=== PATIENT | female | born 1985 | race Caucasian/White ===

== ENCOUNTER 2025-08-22 08:17 | Emergency (ER) | payer MEDICAID ==
[~2025-08-22] VITALS: Ht 165.1 cm; Wt 108.2 kg
[2025-08-22 08:20] VITALS: BP 125/83; PULSE 77; RESP 16; TEMP 97.3; O2SAT 98
[2025-08-22 10:48] LABS: LEUKOCYTE ESTERASE ,URINE NEGATIVE (Neg); NITRITES, URINE NEGATIVE (Neg); OCCULT BLOOD,URINE NEGATIVE (Neg)
[2025-08-22 10:50] LABS: UA COLLECTION TYPE NON-SPECIFIED
[2025-08-22] MEDS ORDERED: DIF150T PO (11:39)
[2025-08-22] MEDS ORDERED: METR-159 PO (11:39)
--- NOTE | 2025-08-22 11:39 | Physician Documentation ---
History of Present Illness ~ Chief Complaint: See Chief Complaint Stated Complaint: URINARY SYMPTOMS Time Seen by MD: 10:54 OK to notify your PCP?: Yes Primary Medical Doctor: none Source: patient Mode of Arrival: POV Exam Limitations: no limitations HPI 39-year-old female with chief complaint vaginal odor x several days which she states she has had before and attributes it to "BV" but states it has been quite some time since she has dealt with this. No new sexual partners. States there is no concern for gonorrhea or chlamydia. Denies any vaginal discharge. Denies pain with urination, urinary frequency, pelvic pain, fever or chills. Last Menstrual Period: Jul 20, 2025 Medication Reconciliation Allergies: Coded Allergies: No Known Allergies (Unverified , 08/22/25) Past Medical History Past Medical History: No Pertinent History Past Surgical History: noncontributory Last Menstrual Period: Jul 20, 2025 Drug Use: none Lives In: Home Review of Systems All Other Systems at this time: Reviewed and Negative Physical Exam Vital Signs: Temperature: 97.3, Source: Temporal, Heart Rate: 77, Respiratory Rate: 16, BP: 125/83, Pulse Oximetry: 98, Weight: 108.200 Oxygen Flow Rate: 0 Physical Exam General Appearance: Alert, WD/WN. NAD. HEENT: NCAT, PERRL, EOMI. Neck: Supple, trachea midline. Lungs: Breathing unlabored Abd: Soft, NDNT Extremities: Normal inspection. No edema. Skin: Warm/dry, normal color Neurological: Alert and oriented x4, normal gait. Psychiatric: Affect congruent with mood. Progress Results/Orders Results/Orders Vital Signs 08/22/25 08:20 Temp 97.3 Pulse 77 Resp 16 B/P (MAP) 125/83 Pulse Ox 98 O2 Flow Rate 0 Laboratory Tests Test 08/22/25 10:38 Urine Specimen Description Non-specified Urine Color Yellow Urine Clarity Clear Urine pH 7.0 Urine Specific [place] 1.020 Urine Protein Negative Urine Glucose (UA) Negative Urine Ketones Negative Urine Occult Blood Negative Urine Nitrite Negative Urine Bilirubin Negative Urine Urobilinogen 0.2 Urine Leukocyte Esterase Negative Urine Culture Indicated Not ind Volume Urine Centrifuged 10 ml Urine Comment Medical Decision Making Additional information obtaine: N/A Findings na Urinary Diff Dx:Considerations: Include: AAA, , Aortic dissection, Appendicitis, Bowel obstruction, Cholelithiasis, Choleangitis, DJD, Ectopic , Hepatitis, HNP, Impaction, Intrauterine , Musculoskeletal pain, Ovarian torsion, Pancreatitis, PID, Post-Op complication, Pyelonephritis, Renal failure, Strain, Urinary Obstruction, Urolithiasis, Urinary retention, UTI, Vaginitis, Other Genital Diff Dx:Considerations: Include: -Complete, - Incomplete, -Inevitable, Ablortion-Missed, -Threatened, Abruptio placentae, Bartholin abscess, Bartholin cyst, Blood loss anemia, Constipation, Cervicitis, Dsymenorrhea, Ectopic , Foreign body, Hormonal, Hidradenitis suppurativa, Intrauterine , Menorrhagia, Menometrorrhagia, Menstrual bleeding, Myomatous uterus, Perianal abscess, Physiologic discharge, Pinworms, PID, Placenta previa, , Precipitous Hct, Trauma, UTI, Vaginitis(osis)-Atrophic, Vaginitis, Vaginitis(osis)-Bacterial, Vaginitis(osis)- Candidal, Vaginitis(osis)-Contact, Vaginitis(osis)-Herpes, Vaginitis(osis)- Trich., Other Departure Time of Disposition: 11:33 Disposition: 01 HOME / SELF CARE / HOMELESS Impression: Primary Impression: Bacterial vaginosis Condition: Stable Discharge Instructions: Bacterial Vaginosis, [id number] Additional Instructions: antibiotic sent also covered for yeast with flagyl since they commonly co-exist f/u with testing engineer if symptoms persist or return to er Referrals: NO PRIMARY CARE PROVIDER (PCP) Prescriptions Fluconazole* (Diflucan*) 150 Mg Tablet 1 TAB PO ONCE for 7 Days, #2 TAB DISREGARD ABOVE INSTRUCTIONS AND FOLLOW THESE INSTRUCTIONS : 1TAB PO QD NOW AND AGAIN IN 7DAYS Prov: GINO OLIVEIRA 08/22/25 Metronidazole* (Flagyl*) 500 Mg Tablet 1 TAB PO TID for 7 Days, #21 TAB Prov: GINO OLIVEIRA 08/22/25 Education Educated: Patient Educated regarding: diagnosis, treatment, need for follow up Signature Scribe Signature: x Attestation: x GINO OLIVEIRA Aug 22, 2025 11:39
== END 2025-08-22 12:24 | disposition home or self-care (01) ==
LOC: ER 08:18
DX: N76.0 Acute vaginitis (principal); B96.89 Other specified bacterial agents as the cause of diseases classified elsewhere
CPT/HCPCS: 81003; 99283